=== PATIENT | male | born 2000 | race Caucasian/White ===

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

== ENCOUNTER → 2023-04-18 | Outpatient (CLI) | payer OTHER | LOC: COL.RAD 07:52 | DX: S43.492A Other sprain of left shoulder joint, initial encounter (principal); X58.XXXA Exposure to other specified factors, initial encounter | CPT/HCPCS: A9575; Q9967 ==